=== PATIENT | male | born 1985 | race Caucasian/White ===

== ENCOUNTER 2018-10-24 13:32 | Emergency (ER) | payer OTHER ==
[~2018-10-24] VITALS: Ht 157.5 cm; Wt 80.0 kg
[~2018-10-24 13:32] MED LIST: HYDR-4011 PO; IBUP800T48 PO
[2018-10-24 13:36] VITALS: BP 146/91; PULSE 91; RESP 18; Ht 157.5 cm; Wt 80.0 kg
--- NOTE | 2018-10-24 13:40 | EN ---
Date/Time of Note Date/Time of Note DATE: 10/24/18 TIME: 13:40 ER Progress Note Patient with crush injury to right thumb. X-ray ordered but will need to go to the back for pain management. CAROLE CHRISTENSEN PA-C Oct 24, 2018 13:40
--- NOTE | 2018-10-24 14:13 | ERD ---
ER Documentation Chief Complaint Chief Complaint crushed right thumb HPI 33-year-old male [id number] presents with pain in his right thumb after he crushed his right thumb in car door. He has moderate throbbing pain in his thumb. No numbness or tingling. No other areas of injury. ROS All systems reviewed and are negative except as per history of present illness. Medications Home Meds Active Scripts Hydrocodone/Acetaminophen ([place] 5-325 Tablet) 1 Each Tablet, 1 TAB PO Q6H PRN for PAIN, #15 TAB Prov:CAROLE CHRISTENSEN PA-C 10/24/18 Ibuprofen* (Motrin*) 800 Mg Tab, 800 MG PO Q6, #30 TAB Prov:CAROLE CHRISTENSEN PA-C 10/24/18 FmHx Family History: No diabetes Physical Exam Vitals Vital Signs Date Temp Pulse Resp B/P (MAP) Pulse Ox O2 O2 Flow FiO2 Time Delivery Rate 10/24/18 98.1 91 18 146/91 99 13:36 (109) Physical Exam Const: No acute distress Head: Atraumatic Eyes: Normal Conjunctiva ENT: Normal External Ears, Nose and Mouth. Neck: Full range of motion. No meningismus. Resp: Clear to auscultation bilaterally Cardio: Regular rate and rhythm, no murmurs Hand -right thumb: Skin: 20% subungual hematoma of right thumb Compartments: Soft Sensation: Intact shoulder/pinky/middle finger/thumb web space Bones: Distal right thumb tender Snuffbox: Nontender Joints: No effusion Wrist: Flex/Ext: Normal Uln/Radial deviation: Normal Pron/Supination Normal Finger: Flex/Ext: Normal Add/abd: Normal Thumb: Flex/Ext: Normal Opposition: Normal Thumbs up: Normal Procedures/MDM Patient crushed his thumb. He is neurovascularly intact. X-rays are negative. I explained to the patient because I am in ED3 I am unable to give him pain medication at this time and therefore he was originally set to go back to ED2 however after I told him the results of his x-ray he preferred to be discharged with prescription for pain medications instead of waiting to go to the back. Therefore he was discharged with ibuprofen and [place]. Patient counseled regarding my diagnostic impression and care plan. Prior to discharge all questions answered. Pt agrees with treatment plan and understands strict return precautions. Pt is instructed to follow up with primary care provider within 24- 48 hours. Precautionary instructions provided including instructions to return to the ER if not improving or for any worsening or changing symptoms or concerns. Departure Diagnosis: Primary Impression: Thumb contusion Condition: Stable Patient Instructions: Contusion, Hand Additional Instructions: Call your primary care doctor TOMORROW for an appointment during the next 1-2 days.See the doctor sooner or return here if your condition worsens before your appointment time. CAROLE CHRISTENSEN PA-C Oct 24, 2018 14:13
== END 2018-10-24 14:00 | disposition home or self-care (01) ==
LOC: E/R 13:32
DX: S60.111A Contusion of right thumb with damage to nail, initial encounter (principal); W23.0XXA Caught, crushed, jammed, or pinched between moving objects, initial encounter; Y92.810 Car as the place of occurrence of the external cause
CPT/HCPCS: 73140; Z7502